=== PATIENT | male | born 1970 | race African-American/Black ===

== ENCOUNTER 2020-08-29 13:36 | Emergency (ER) | payer MEDICAID ==
[~2020-08-29] VITALS: Ht 200.7 cm; Wt 137.4 kg
[2020-08-29 13:44] VITALS: Ht 200.7 cm; Wt 137.4 kg
[2020-08-29 14:13] VITALS: BP 166/95
== END 2020-08-29 14:13 | disposition home or self-care (01) ==
LOC: ED 13:36
DX: F20.9 Schizophrenia, unspecified (principal); F17.200 Nicotine dependence, unspecified, uncomplicated; R03.0 Elevated blood-pressure reading, without diagnosis of hypertension; Z76.0 Encounter for issue of repeat prescription
CPT/HCPCS: 99406